=== PATIENT | female | born 1985 | race Caucasian/White ===

== ENCOUNTER 2017-02-14 15:01 | Emergency (ER) | payer OTHER ==
[2017-02-14 15:13] VITALS: BP 124/71; PULSE 88; RESP 16; TEMP 98.9
--- NOTE | 2017-02-14 15:37 | ED ---
General Adult HPI - General Chief complaint: Urogenital Stated complaint: Female Time Seen by Provider: 02/14/17 15:18 Source: patient, RN notes reviewed Mode of arrival: ambulatory Limitations: no limitations - History of Present Illness Initial comments: Plan and history of present illness a 31-year-old female here with recurrent case of genital herpes. The patient is requesting medications. She has not yet reestablish himself with local physician does not have an HAIR WEAVER. - Related Data Home Medications Medication Instructions Recorded Confirmed Gabapentin 600 mg PO TID 07/19/15 02/14/17 ALPRAZolam [Xanax] 2 mg PO BID 02/14/17 02/14/17 ARIPiprazole [Abilify] 15 mg PO DAILY 02/14/17 02/14/17 buPROPion [Wellbutrin] 200 mg PO BID 02/14/17 02/14/17 Previous Rx's Medication Instructions Recorded Albuterol Nebulized [Ventolin 2.5 mg INHALATION Q4H PRN #1 box 07/20/15 Nebulized] Albuterol Sulfate [Proair Hfa] 2 puff INHALATION Q4HR PRN #1 07/20/15 inhaler Acyclovir [Zovirax] 200 mg PO 5XD #50 capsule 02/14/17 Allergies Allergy/AdvReac Type Severity Reaction Status Date / Time No Known Allergies Allergy Verified 02/14/17 15:12 Review of Systems ROS Statement: Those systems with pertinent positive or pertinent negative responses have been documented in the HPI. Review of systems patient has no other complaints other than recurrent herpes genitalia. The patient reports she first developed the infection approximately 8 weeks ago. Since then she's had 2 outbreaks. The patient will be getting a new PCP within the next week. She is requesting acyclovir. Patient has no other complaints. Past medical problems significant for hep C from IV drug abuse she's been clean for 1 year. Also history of asthma, fibromyalgia. The patient surgeries include 2 C-sections. She's had tubal ligation as well. Family history skin cancer. The patient denies ALLERGIES she does smoke strongly encouraged to stop denies alcohol use. ROS Other: All systems not noted in ROS Statement are negative. Past Medical History Past Medical History: Asthma, Fibromyalgia Additional Past Medical History / Comment(s): nerve pain, herpes, hep c History of Any Multi-Drug Resistant Organisms: None Reported Past Surgical History: Section Past Psychological History: Depression Smoking Status: Current every day smoker Past Alcohol Use History: None Reported Past Drug Use History: None Reported General Exam - General Exam Comments Initial Comments: General: The patient is awake and alert, in no distress, and does not appear acutely ill. States she has a recurrent outbreak of genital herpes. Vital signs temperature 98.9 pulse 88 respiratory rate 16 pulse ox 99% room air blood pressure 124/71. Patient denies any chest pain shortness of breath, no nausea no vomiting or diarrhea. No other complaints. No skin rashes other than recurrent genital herpes. The patient will be given prescription for acyclovir. Advised follow-up with family physician. Also advised to stop smoking. Limitations: no limitations Course Vital Signs 02/14/17 15:09 Temperature 98.9 F Pulse Rate 88 Respiratory 16 Rate Blood Pressure 124/71 O2 Sat by Pulse 99 Oximetry Medical Decision Making - Medical Decision Making Patient started on acyclovir. Advised to stop smoking. Follow-up with family physician. Disposition Clinical Impression: Genital herpes Disposition: HOME SELF-CARE Condition: Stable Instructions: Genital Herpes Simplex (ED) Additional Instructions: Take medications as directed. Stop smoking as soon as possible. Follow-up with family physician. Prescriptions: Acyclovir [Zovirax] 200 mg PO 5XD #50 capsule Time of Disposition: 15:36
== END 2017-02-14 15:50 | disposition home or self-care (01) ==
LOC: EC 15:01
DX: A60.00 Herpesviral infection of urogenital system, unspecified (principal); M79.7 Fibromyalgia; F32.9 Major depressive disorder, single episode, unspecified; F17.200 Nicotine dependence, unspecified, uncomplicated; Z79.899 Other long term (current) drug therapy
CPT/HCPCS: 99283